=== PATIENT | male | born 1935 | race Caucasian/White ===

== ENCOUNTER 2017-08-14 17:59 | Emergency (ER) | payer OTHER ==
--- OUTSIDE RECORDS SUMMARY | 2017-08-14 18:01 | XMS REPORT | Clinical Summary ---
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);Dyslipidemia (high LDL; low HDL);Essential hypertension, 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 08/13/2016 Social History Tobacco Use Types Packs/Day Years Used Date Former Smoker Alcohol Use Drinks/Week oz/Week Comments No Sex Assigned at Date Recorded Not on file Last Filed Vital Signs Not on file Plan of Treatment Not on file Results Lipid panel (01/29/2017 9:05 AM) Component Value Ref Range Triglycerides 65 mg/dL Cholesterol 175 mg/dL HDL 46 mg/dL LDL Calculated 116 mg/dL Specimen Performing Laboratory Blood - Arm, Right [address] [address] Narrative Triglyceride Reference Range: Low Risk <150 [id number] High Risk 200-499 Very High Risk>=500 Cholesterol Reference Range: Low Risk <200 [id number] High Risk>240 HDL Cholesterol Reference Range: Low Risk >=60 High Risk <40 LDL Cholesterol Reference Range: Optimal<100 Near [id number] Swfl011-488 Very High >=190 after 08/13/2016
--- OUTSIDE RECORDS SUMMARY | 2017-08-14 18:01 | XMS REPORT | Clinical Summary ---
:1935 Author Organization [facility] Address [address] [place] [address] Care Team Providers Name Role Phone Asked, No Pcp Primary Care Provider Unavailable Allergies No Known Allergies Current Medications Prescription Sig. Disp. Refills Start Date End Date Status aspirin (ECOTRIN) 81 MG Take 81 mg by Active enteric coated tablet mouth daily. Active Problems Not on file Encounters Date Type Specialty Care Team Description 07/31/2017 [facility] 07/31/2017 Hospital Encounter Radiology Cristina Ki Foreign body in ANISA Gonzalez digestive tract, initial encounter 07/31/2017 Transcribe Orders Access Ki Evans Foreign body in Lisa Can digestive tract, initial encounter (Primary Dx) 06/22/2017 Emergency Emergency Medicine Rehrer, [place] Traumatic injury of head, initial encounter (Primary Dx); DO Armaan Cervical strain, acute, initial encounter after 08/13/2016 Social History Tobacco Use Types Packs/Day Years Used Date Never Smoker Smokeless Tobacco: Never Used Alcohol Use Drinks/Week oz/Week Comments Yes Sex Assigned at Date Recorded Not on file Last Filed Vital Signs Vital Sign Reading Time Taken Blood Pressure 137/64 06/22/2017 12:52 PM CDT Pulse 58 06/22/2017 12:52 PM CDT Temperature 36.8 C (98.3 F) 06/22/2017 11:01 AM CDT Respiratory Rate 16 06/22/2017 12:52 PM CDT Oxygen Saturation 99% 06/22/2017 12:52 PM CDT Inhaled Oxygen Concentration - - Weight - - Height 175.3 cm (5' 9") 06/22/2017 11:01 AM CDT Body Mass Index - - Plan of Treatment Health Maintenance Due Date Last Done Comments SHINGRIX VACCINE (#1) 08/02/1985 ZOSTER VACCINE 1995 PNEUMOCOCCAL POLYSACCHARIDE VACCINE AGE 65 AND OVER 08/02/2000 PNEUMOCOCCAL-13 08/02/2000 INFLUENZA VACCINE 09/16/2017 Procedures Procedure Name Priority Date/Time Associated Diagnosis Comments XR ABDOMEN 1 VW Routine 07/31/2017 9:20 AM Foreign body in Results for this CDT digestive tract, procedure are in initial encounter the results section. XR CHEST 2 VW Routine 07/31/2017 9:20 AM Foreign body in Results for this CDT digestive tract, procedure are in initial encounter the results section. CT HEAD WO CONTRAST STAT 06/22/2017 11:38 AM Results for this CDT procedure are in the results section. CT CERVICAL SPINE STAT 06/22/2017 11:37 AM Results for this WO CONTRAST CDT procedure are in the results section. after 08/13/2016 Results XR Abdomen 1 Vw (07/31/2017 9:20 AM) Narrative Performed At XR ABDOMEN 1 VW [facility] CLINICAL INDICATION:T18.9XXA Foreign body of alimentary tractpart unspecifiedinitial encounter, t18.9 COMPARISON:None. IMPRESSION: There is a radiodense focus overlying the right upper quadrant; this was anterior on today's chest radiographs consistent with distal stomach position, the transverse colon appearing more anterior. Bowel gas pattern is nonobstructive. There is moderate stool through the colon. No free air is identified. There are no radiopaque calculi. 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 [id number] Procedure Note Interface, Radiology Results Incoming - 07/31/2017 10:03 AM CDT XR ABDOMEN 1 VW CLINICAL INDICATION: T18.9XXA Foreign body of alimentary tract part unspecified initial encounter, t18.9 COMPARISON: None. IMPRESSION: There is a radiodense focus overlying the right upper quadrant; this was anterior on today's chest radiographs consistent with distal stomach position, the transverse colon appearing more anterior. Bowel gas pattern is nonobstructive. There is moderate stool through the colon. No free air is identified. There are no radiopaque calculi. 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 [id number] Performing Organization Address City/State/Zipcode Phone Number [facility] [address] [place] [address] XR Chest 2 Vw (07/31/2017 9:20 AM) Narrative Performed At XR CHEST 2 VW [facility] CLINICAL INDICATION:T18.9XXA Foreign body of alimentary tractpart unspecifiedinitial encounter, foreign body COMPARISON:01/19/2014 IMPRESSION: Lungs are clear and without change from priors. There is trace fluid in the posterior costophrenic sulci new from prior exam without significant effusion. Heart is normal in size. There is mild atherosclerosis of the aorta. [id number] thoracic spondylosis is noted. There is a high density 12 mm focus in the abdomen to the right of the midline in the region of the gastroduodenal junction/distal stomach consistent with history of foreign body, question dental crown. Thank you for allowing us to participate in the care of your patient. [id number] Procedure Note Interface, Radiology Results Incoming - 07/31/2017 9:27 AM CDT XR CHEST 2 VW CLINICAL INDICATION: T18.9XXA Foreign body of alimentary tract part unspecified initial encounter, foreign body COMPARISON: 01/19/2014 IMPRESSION: Lungs are clear and without change from priors. There is trace fluid in the posterior costophrenic sulci new from prior exam without significant effusion. Heart is normal in size. There is mild atherosclerosis of the aorta. Mild-to- moderate thoracic spondylosis is noted. There is a high density 12 mm focus in the abdomen to the right of the midline in the region of the gastroduodenal junction/distal stomach consistent with history of foreign body, question dental crown. Thank you for allowing us to participate in the care of your patient. [facility]-[id number] Performing Organization Address City/State/Zipcode Phone Number [facility] [phone] [place] [address] CT Head Wo Contrast (06/22/2017 11:38 AM) Narrative Performed At Study: [facility] History:fallbt head COMPARISON:None. TECHNIQUE: Multiple axial CT images of the head obtained without IV contrast. CT imaging was performed with iterative reconstruction technique and/or automated exposure control to reduce radiation dose. FINDINGS: Parenchymal volume is mildly diffusely decreased likely age related.. There are changes of chronic small vessel ischemic disease There is no acute hemorrhage, midline shift, hydrocephalus, edema, or extra-axial collections. .The visualized paranasal sinuses are well aerated.The mastoid air cells are well aerated. No destructive calvarial lesions are seen. The visualized orbits are unremarkable. IMPRESSION: No acute intracranial abnormality. [facility]-[id number] Procedure Note Interface, Radiology Results Incoming - 06/22/2017 11:43 AM CDT Study: CT HEAD WO CONTRAST History:fall bt head COMPARISON:None. TECHNIQUE: Multiple axial CT images of the head obtained without IV contrast. CT imaging was performed with iterative reconstruction technique and/or automated exposure control to reduce radiation dose. FINDINGS: Parenchymal volume is mildly diffusely decreased likely age related.. There are changes of chronic small vessel ischemic disease There is no acute hemorrhage, midline shift, hydrocephalus, edema, or extra-axial collections. .The visualized paranasal sinuses are well aerated. The mastoid air cells are well aerated. No destructive calvarial lesions are seen. The visualized orbits are unremarkable. IMPRESSION: No acute intracranial abnormality. [facility]-[id number] Performing Organization Address City/State/Zipcode Phone Number [facility] [address] [place] [address] CT Cervical Spine Wo Contrast (06/22/2017 11:37 AM) Narrative Performed At Study:CT CERVICAL SPINE WO CONTRAST [facility] History:fallbt headneck sore COMPARISON: None. TECHNIQUE: Multiple axial CT images of the cervical spine obtained without IV contrast. Sagittal and coronal reconstructions were done. CT imaging was performed with iterative reconstruction technique and/or automated exposure control to reduce radiation dose. FINDINGS: The cervical lordosis is maintained. There is minimal 3 mm retrolisthesis at C3-4, C4-5, and C7/T1 which are likely degenerative. Vertebral body heights are within normal limits. There is no acute fracture. Severe disc space loss present at C5-6 and C6-7 with endplate osteophytes indicating degenerative disc disease. There is no obvious osseous canal stenosis. Multilevel moderate foraminal stenosis present from spondylosis worse at C3-4, C4-5, C5-6, and C6-7. Paravertebral soft tissues are unremarkable. There is no soft tissue edema. Visualized upper chest is unremarkable. IMPRESSION: No acute abnormality. [facility]-[id number] Procedure Note Interface, Radiology Results Incoming - 06/22/2017 11:46 AM CDT Study:CT CERVICAL SPINE WO CONTRAST History:fall bt head neck sore COMPARISON: None. TECHNIQUE: Multiple axial CT images of the cervical spine obtained without IV contrast. Sagittal and coronal reconstructions were done. CT imaging was performed with iterative reconstruction technique and/or automated exposure control to reduce radiation dose. FINDINGS: The cervical lordosis is maintained. There is minimal 3 mm retrolisthesis at C3 -4, C4-5, and C7/T1 which are likely degenerative. Vertebral body heights are within normal limits. There is no acute fracture. Severe disc space loss present at C5-6 and C6-7 with endplate osteophytes indicating degenerative disc disease. There is no obvious osseous canal stenosis. Multilevel moderate foraminal stenosis present from spondylosis worse at C3-4, C4-5, C5-6, and C6-7. Paravertebral soft tissues are unremarkable. There is no soft tissue edema. Visualized upper chest is unremarkable. IMPRESSION: No acute abnormality. [id number] Performing Organization Address City/State/Zipcode Phone Number [facility] [address] [facility] [place] [address] after 08/13/2016 Insurance Payer Benefit Plan / Group Subscriber ID Type Phone Address MEDICARE MEDICARE PART A AND B xxxxxxxxxx Medicare [place], [place] CANDICE HARVEY OPEN ACCESS/NETWORK xxxxxxxxxxx O Work: [id number] [facility] [phone] [place], [place] [phone] Home:
--- OUTSIDE RECORDS SUMMARY | 2017-08-14 18:02 | XMS REPORT | Summary of Care ---
:1935 Author Organization [facility] [place] [facility] Encounter HQ Shawnar_morgan(FIN) [id number] Date(s): 04/23/16 - 04/23/16 [facility] [place] [facility] [address] [place] [address], [address] [phone] Discharge Disposition: Home or Self Care Attending Physician: Walter Moon MD Vital Signs No data available for this section Problem List No data available for this section Allergies, Adverse Reactions, Alerts Substance Reaction Severity Status NKDA Active Medications No data available for this section Results No data available for this section Immunizations No data available for this section Procedures No data available for this section Social History No data available for this section Assessment and Plan No data available for this section
--- OUTSIDE RECORDS SUMMARY | 2017-08-14 18:02 | XMS REPORT | Continuity of Care Document ---
:1935 Author Organization Interface Problems Problem Status Onset Classification Date Comments Source Date Reported Q64.7 Active [place] [address] N/A Active [facility] 7 Impaired Active Problem 12/23/2016 [facility] hearing HTN (<span Active Problem 12/23/2016 [facility] ID="[id number]">Confir med</span>) Medications Medication Details Route Status Patient Ordering Order Source Instructions Provider Date lisinopril
5 mg, 1 Inactive tab, Route: PO, 2016 [facility] Drug form: TAB, Daily, Dosing Weight 73.636, kg, Start date: 12/20/16 9:00:00 CDT, Duration: 30 day, Stop date: 01/18/17 9:00:00 NEUROLOGY TEACHER
Notes: (Same as: Prinivil, Zestril) Zetia
10 mg, 1 Inactive tab, Route: PO, 2016 [facility] Drug form: TAB, Daily, Dosing Weight 73.636, kg, Start date: 12/20/16 9:00:00 CDT, Duration: 30 day, Stop date: 01/18/17 9:00:00 NEUROLOGY TEACHER
Notes: (Same as: Zetia) Saline Flush
10 ml, No Longer 0.9% Route: IVP, Drug Active 2016 [facility] Form: INJ, Dosing Weight 73.636, kg, Q12H, Start date: 12/19/16 21:00:00 CDT, Duration: 30 day, Stop date: 01/18/17 9:00:00 NEUROLOGY TEACHER
Notes: (Same as: BD Posiflush) ceFAZolin (SCIP)
Route: IVP, Inactive 2 gm + sterile Drug form: 2016 [facility] water 20 mL PDR/INJ, Q8H, Dosing Weight 73.636, kg, Start date: 12/19/16 20:00:00 CDT, Duration: 1 doses or times, Stop date: 12/19/16 20:00:00 CDT, ABX Indication: Surgical Prophylaxis
Notes: (Same As: Chris Elizabeth) MEDICATION WASTE Product Size: 1000 mg Product Wasted: ___ mg Coreg
6.25 mg, 1 No Longer tab, Route: PO, Active 2016 [facility] Drug form: TAB, BID, Dosing Weight 73.636, kg, Start date: 12/19/16 17:00:00 CDT, Duration: 30 day, Stop date: 01/18/17 9:00:00 NEUROLOGY TEACHER
Notes: Give with food. (Same As: Coreg) ANES
1,000 mg, Inactive acetaminophen 100 mL, Route: 2016 [facility] IVPB, Drug form: INJ, ONCE, Dosing Weight 73.636, kg, PRN Pain Score 1-3, Start date: 12/19/16 13:23:00 CDT, Duration: 1 doses or times, Stop date: Limited # of times
Notes: Infuse over 15 minutes Do not exceed 4gm/day of acetaminophen MEDICATION WASTE Product Size: 1000 mg Product Wasted: ___ mg ANES ondansetron
4 mg, 2 mL, Inactive Route: IVP, Drug 2016 [facility] form: INJ, ONCE, Dosing Weight 73.636, kg, PRN Nausea & Vomiting, Start date: 12/19/16 13:23:00 CDT
Notes: (Same as: Jackelin) MEDICATION WASTE Product Size: 4 mg Product Wasted: ___ mg ANES morphine
2 mg, 1 mL, Inactive Sulfate Route: IVP, Drug 2016 [facility] form: INJ, Q5Min, Dosing Weight 73.636, kg, PRN Pain Score 4-6, Start date: 12/19/16 13:23:00 CDT, Duration: 5 doses or times, Stop date: Limited # of times
Notes: (Same as:MORPhine Sulfate) ANES oxyCODONE
5 mg, 5 mL, Inactive Route: PO, Drug 2016 [facility] form: LIQ, Q4H, Dosing Weight 73.636, kg, PRN Pain Score 4-6, Start date: 12/19/16 13:23:00 CDT, Duration: 30 day, Stop date: 01/18/17 13:22:00 NEUROLOGY TEACHER
Notes: (Same as: 'Roxicodone) ANES
0.5 mg, 0.5 Inactive HYDROmorphone mL, Route: IVP, 2016 [facility] Drug form: INJ, Q5Min, Dosing Weight 73.636, kg, PRN Pain Score 7-10, Start date: 12/19/16 13:23:00 CDT, Duration: 4 doses or times, Stop date: Limited # of times ANES naloxone
0.4 mg, 1 Inactive mL, Route: IVP, 2016 [facility] Drug form: INJ, Q2MIN, Dosing Weight 73.636, kg, PRN Narcotic Reversal, Start date: 12/19/16 13:23:00 CDT, Duration: 8 doses or times, Stop date: Limited # of times
Not es: Same as Narcan ANES flumazenil
0.2 mg, 2 Inactive mL, Route: IVP, 2016 [facility] Drug form: INJ, PRN, Dosing Weight 73.636, kg, PRN Benzodiazepine Reversal, Initial dose, Start date: 12/19/16 13:23:00 CDT, Duration: 30 day, Stop date: 01/18/17 12:22:00 NEUROLOGY TEACHER
Notes: (Same as: Romazicon) ANES labetalol
10 mg, 2 Inactive mL, Route: IVP, 2016 [facility] Drug form: INJ, Q5Min, Dosing Weight 73.636, kg, PRN Elevated BP, Start date: 12/19/16 13:23:00 CDT, Duration: 5 doses or times, Stop date: Limited # of times Lactated Ringers
1,000 mL, Inactive 1,000 mL Rate: 125 ml/hr, 2016 [facility] Infuse over: 8 hr, Route: IV, Dosing Weight 73.636 kg, Total Volume: 1,000, Start date: 12/19/16 13:23:00 CDT, Duration: 30 day, Stop date: 01/18/17 13:22:00 NEUROLOGY TEACHER dexamethasone
Route: IV, Inactive (ANES) Drug form: INJ, 2016 [facility] , Stop date: 12/19/16 12:50:00 CDT ondansetron
Route: IV, Inactive (ANES) Drug form: INJ, 2016 [facility] , Stop date: 12/19/16 12:50:00 CDT glycopyrrolate
Route: IV, Inactive (ANES) Drug form: INJ, 2016 [facility] , Stop date: 12/19/16 12:50:00 CDT lidocaine (ANES)
Route: IV, Inactive Drug form: INJ, 2016 [facility] , Stop date: 12/19/16 12:50:00 CDT propofol (ANES)
Route: IV, Inactive Drug form: INJ, 2016 [facility] , Stop date: 12/19/16 12:50:00 CDT fentaNYL (ANES)
Route: IV, Inactive Drug form: INJ, 2016 [facility] , Stop date: 12/19/16 12:50:00 CDT phenylephrine
Route: IV, Inactive (ANES) Drug form: INJ, 2016 [facility] , Stop date: 12/19/16 12:50:00 CDT ceFAZolin (ANES)
Route: IV, Inactive Drug form: INJ, 2016 [facility] , Stop date: 12/19/16 12:50:00 CDT Saline Flush
10 ml, No Longer 0.9% Route: IVP, Drug Active 2016 [facility] Form: INJ, Dosing Weight 73.636, kg, PRN, PRN Line Flush, Start date: 12/19/16 12:40:00 CDT, Duration: 30 day, Stop date: 01/18/17 11:39:00 NEUROLOGY TEACHER
Notes: (Same as: BD Posiflush) acetaminophen-hy
1 tab, No Longer drocodone 325 Route: PO, Drug Active 2016 [facility] mg-5 mg oral Form: TAB, tablet Dosing Weight 73.636, kg, Q4H, PRN Pain Score 4-6, Start date: 12/19/16 12:40:00 CDT, Duration: 30 day, Stop date: 01/18/17 12:39:00 NEUROLOGY TEACHER
Notes: (Same as: [place] 325/5) Do not exceed 4gm/day of acetaminophen. ondansetron
4 mg, 2 mL, No Longer Route: IVP, Drug Active 2016 [facility] form: INJ, Q6H, Dosing Weight 73.636, kg, PRN Nausea & Vomiting, Start date: 12/19/16 12:40:00 CDT, Duration: 30 day, Stop date: 01/18/17 12:39:00 NEUROLOGY TEACHER
Notes : (Same as: Jackelin) MEDICATION WASTE Product Size: 4 mg Product Wasted: ___ mg acetaminophen-hy
1 tab, No Longer drocodone 325 Route: PO, Drug Active 2016 [facility] mg-10 mg oral Form: TAB, tablet Dosing Weight 73.636, kg, Q4H, PRN Pain Score 4-6, Start date: 12/19/16 12:40:00 CDT, Duration: 30 day, Stop date: 01/18/17 12:39:00 NEUROLOGY TEACHER
Notes: Do not exceed 4gm/day of acetaminophen. (Same as: [place] 325/10) LR 1000 mL INJ
Route: IV, Inactive (ANES) Total Volume: 2016 [facility] 1,000, Start date: 12/19/16 12:02:00 CDT, Stop date: 12/19/16 13:02:00 CDT Coreg
6.25 mg, Active PO, BID 2016 [facility] lisinopril
5 mg, PO, Active Daily 2016 [facility] aspirin
81 mg, PO, Active Daily, 0 2016 [facility] Refill(s) MAGNESIUM
MAGNESIUM, Active Refill(s) 0 2016 [facility] Zetia
10 mg, PO, Active Daily 2016 [facility] influenza virus
0.5 mL, No Longer vaccine, Route: IM, Drug Active 2016 [facility] inactivated Form: SUSP, ONCALL, Start date: 12/09/16 14:36:27 CDT, Stop date: 01/08/17 14:31:27 NEUROLOGY TEACHER
Notes: (Same as: Fluzone Quadrivalent, Fluarix Quadrivalent) For 3 years of age and older (0.5 mL IM) Shake well before use Allergies, Adverse Reactions, Alerts Substance Category Reaction Severity Reaction Status Date Comments Source type Reported NKDA Assertion Drug Active allergy [facility] Immunizations Immunization Date Given Site Status Last Updated Comments Source Results Order Name Results Value Reference Date Interpretation Comments Source Range Renal Renal Patient Name: PHONG WEATHERS ROB 12/19 - pyelogram pyelogram /2016 - [facility] retrograde retrograde : 1935; Age: 81 years y/o Male DX DX MR: [id number] Read by: Florian Zabala MD Dictated Date/time: 12/19/16 18:51 Electronically Signed by: Florian Zabala MD 12/19/16 18:53 FINAL REPORT Study: Renal pyelogram retrograde DX 12/19/2016 11:15 AM CDT Ordering Physician: Josh Metcalf MD Comparison: None Clinical Indication: BILATERAL RENAL DRAINING DEFECT//FT--44 SEC. - CHECK FOR STONES; Retrograde opacification of the visualized right upper collecting system and right ureter is unremarkable. Retrograde opacification of the visualized left upper collecting system and left ureter demonst rates a persistent short segmental area of narrowing at the proximal left ureter distal to the left UPJ which could represent a vascular crossing defect. Left upper collecting system and left ureter oth erwise unremarkable. No intraluminal filling defects are noted. SL: PJOHNSON- ELECTROLYT AGAP 12.0 meq/L 10.0 - 12/09 ES 20.0 [facility] ELECTROLYT eGFR 80 12/09 Result Comment: The eGFR is calculated using the CKD-EPI formula. In most young, healthy individuals the eGFR will be >90 mL/ min/1.73m2. The eGFR declines with age. An eGFR of 60-89 may be normal in mL/min/1. some populations, particularly the elderly, for whom the CKD-EPI formula has not been extensively validated. Use of the eGFR is not recommended in the following populations: [place] [address] Individuals with unstable creatinine concentrations, including patients and those with serious co-morbid conditions. Patients with extremes in muscle mass or diet. The data above are obtained from the National Kidney Disease Education Program (NKDEP) which additionally recommends that when the eGFR is used in patients with extremes of body mass index for purposes of drug dosing, the eGFR should be multiplied by the estimated BMI. ELECTROLYT Chloride Lvl 105 meq/L 95 - 109 12/09 [facility] ELECTROLYT Potassium 4.0 meq/L 3.5 - 5.1 12/09 [facility] Lvl [facility] ELECTROLYT Calcium Lvl 8.1 mg/dL 8.5 - 10.5 12/09 [facility] ELECTROLYT CO2 32 meq/L 24 - 32 12/09 [facility] ELECTROLYT BUN 20 mg/dL 7 - 22 12/09 [facility] ELECTROLYT Creatinine 0.90 mg/dL 0.50 - 12/09 [facility] Lvl 1.40 [facility] ELECTROLYT Sodium Lvl 145 meq/L 135 - 145 12/09 [facility] ELECTROLYT Glucose Lvl 104 mg/dL 70 - 99 12/09 [facility] HEMATOLOGY MCH 31.9 pg 27.0 - 12/09 31. [facility] HEMATOLOGY MCV 93.0 fL 80.0 - 12/09 94.0 [facility] HEMATOLOGY RDW 13.5 % 11.5 - 12/09 14. [facility] HEMATOLOGY Platelet 242 K/CMM 133 - 450 12/09 [facility] HEMATOLOGY MCHC 34.3 g/dL 32.0 - 12/09 MH 36.0 [facility] HEMATOLOGY MPV 6.7 fL 7.4 - 10.4 12/09 [facility] HEMATOLOGY WBC 6.6 K/CMM 3.7 - 10.4 12/09 [facility] HEMATOLOGY RBC 4.17 M/CMM 4.70 - 12/09 MH 6. [facility] Hct 38.8 % 42.0 - 12/09 MH 54.[address] [facility] Hgb 13.3 g/dL 14.0 - 12/09 MH 18.[address] [facility] Monocytes # 0.5 K/CMM 0.0 - 0.8 12/09 [facility] HEMATOLOGY Segs-Bands # 4.0 K/CMM 1.5 - 8.1 12/09 [facility] HEMATOLOGY Eosinophils 0.3 K/CMM 0.0 - 0.5 12/09 MH # /2017 [facility] HEMATOLOGY Lymphocytes 1.7 K/CMM 1.0 - 5.5 12/09 MH # /2016 [facility] HEMATOLOGY Basophils # 0.0 K/CMM 0.0 - 0.2 12/09 [facility] HEMATOLOGY Segs 61.1 % 45.0 - 12/09 MH 75.0 [facility] Basophils 0.5 % 0.0 - 1.0 12/[address] [facility] Eosinophils 4.2 % 0.0 - 4.0 12/09 [facility] Monocytes 8.3 % 2.0 - 12.0 12/[address] [facility] Lymphocytes 25.9 % 20.0 - 12/09 MH 40.0 [facility] Abd Renal Abd Renal EXAM: CT ABDOMEN AND PELVIS WITH AND WITHOUT CONTRAST 05/01 - [facility] Protocol Protocol /2017 - [facility] w/wo IV w/wo IV Imaging contrast contrast CT CT DATE: 05/01/2016 9:00 AM CDT Read by: Wilbert Dobbins MD Dictated Date/time: 05/01/16 09:52 Electronically Signed by: Wilbert Dobbins MD 05/01/16 10:16 FINAL REPORT INDICATION: Indeterminate density lesions in the right kidney which require further evaluation with CT exam with and without contrast ADDITIONAL INFORMATION: History of cholecystectomy, hernia surgery, and appendectomy.. COMPARISON: 04/23/2016. TECHNIQUE: Volumetric CT acquisition of the abdomen and pelvis before and after intravenous contrast. Axial, coronal and sagittal reconstructions. IV contrast: None Oral contrast: None. FINDINGS: Lines and tubes: None. Lower thorax: Minimal compressive subsegmental atelectasis is seen in the right lower lobe medially adjacent to a thoracic spinal osteophyte. Atherosclerotic calcifications are seen throughout the visua lized portions of the coronary arterial system. No pleural or pericardial effusions are seen. Liver: Normal. Biliary tree: Mild pneumobilia is present with gas within the common bile duct and intrahepatic ductal system. The common bile duct measures 11 mm in maximal diameter. These findings are likely related to the patient's postcholecystectomy state and prior sphincterotomy. Clinical correlation is recommended. Gas-forming infection is unlikely given lack of associated edema surrounding the biliary tree. Gallbladder: The gallbladder is absent surgically. Pancreas: A punctate calcification is seen in the pancreatic tail, likely related to the patient's prior pancreatitis. No gross masses are seen. No fluid collections or pancreatic ductal abnormalities are noted. Spleen: Normal. Adrenals: Normal. Kidneys and ureters: Numerous simple fluid attenuation lesions are seen within the right kidney, likely benign simple cysts with the largest located off of the medial cortex of the right kidney measurin g 2.7 cm in maximal diameter. The largest left renal simple fluid attenuation nonenhancing cyst measures 1.4 cm in maximal diameter. A round exophytic lesion is seen extending off the superior pole the right kidney measuring 1.6 cm in maximal diameter and measuring 32 Hounsfield units in density without associated enhancement on postcontrast imaging. Another stable round hypodense lesion is seen extending off of the inferior cortex of the left kidney anteriorly measuring 1.6 cm in maximal diameter measuring 22 Hounsfield units in density with no ass ociated enhancement on postcontrast imaging. These lesions likely represent complex proteinaceous or hemorrhagic cysts but are nonspecific. A stable 5 mm hyperdense cyst is seen in the lateral cortex of the right kidney on image 29 of series 2. No hydronephrosis or calculi are seen in the right kidney. Arising off of the superior pole cortex of the left kidney, there is a stable round 1.1 cm exophytic lesion measuring 61 Hounsfield units in density with a punctate calcification along its posterior bor carolin and with no associated enhancement on postcontrast imaging. Within the mid cortex of the right kidney, there are 4 mm and 7 mm hyperdense lesions measuring greater than 70 Hounsfield units on noncontrast imaging compatible with benign hemorrhagic cysts. Some pun ctate renal cortical calcifications are seen in the inferior pole of the right kidney medially on image 38 of series 2. An exophytic 1.5 cm simple fluid attenuation cyst is seen arising off of the left kidneys inferior pole. No hydronephrosis or calculi are seen. No abnormalities of the included portions of the ureters are demonstrated. Gastrointestinal tract: The stomach is normal in appearance. A few diverticuli are seen off the sigmoid colon with no CT evidence of acute diverticulitis. No other abnormalities of the included large a nd small bowel are demonstrated. The included small intestine and colon are of normal course and caliber with no constricting or obstructing lesions, masses, or surrounding inflammatory changes. Appendix: Not visualized Peritoneum and retroperitoneum: No lymphadenopathy, ascites or free air. Lymph nodes: No abdominal or pelvic lymphadenopathy is seen. Vasculature: Moderate atherosclerotic calcifications are seen throughout the arterial structures of the abdomen and pelvis with no aneurysms seen. There is fusiform ectasia of the common iliac arteries up to 1.3 cm on the left and 1.1 cm in diameter on the right. Bones: Multilevel spondylosis is seen in the thoracolumbar spine. Facet joint osteoarthritic changes are present in the mid to lower lumbar spine. Soft tissues/abdominal wall: None within the [id number] of this exam. IMPRESSION: 1. Simple cysts in the bilateral kidneys, stable from the prior exam. Some hyperdense nonenhancing stable hemorrhagic Bosniak 2 cysts are seen in both kidneys as well. Other small hypodensities which ar e subcentimeter in size are too small to characterize in both kidneys. 2. Two separate 1.6 cm Bosniak 2 nonenhancing mildly hyperdense cysts are seen within the right kidney with no associated mass. 3. A 1.1 cm exophytic hyperdense lesion arising off of the cortex of the left kidney superiorly displaced no enhancement but does display a punctate calcification along its posterior border. This lesion also is categorized as a Bosniak 2 cyst. 3. The gallbladder is surgically absent with common bile duct and central intrahepatic ductal dilatation likely from the patient's postcholecystectomy state (normal variant reservoir effect). Mild pneumobilia is seen throughout the common bile duct and central intrahepatic ducts, likely from prior sphincterotomy. Clinical correlation is recommended. Gas-forming infection is less likely. 4. Colonic diverticulosis with no CT evidence of acute diverticulitis. 5. Atherosclerotic vascular disease, including of the coronary arteries. There is mild fusiform ectasia of the bilateral common iliac arteries. No aortic aneurysm is seen. 6. Stable punctate calcification the pancreatic tail likely from prior pancreatitis. No other pancreatic abdomen is are seen within the limitations of a noncontrast enhanced exam. Chest 2 Chest 2 EXAM: XR CHEST 2 VIEWS 04/23 - [facility] views DX views DX /2016 - [facility] DATE: 04/23/2016 8:19 AM NEUROLOGY TEACHER Read by: Wilbert Dobbins MD Dictated Date/time: 04/23/16 08:30 Electronically Signed by: Wilbert Dobbins MD 04/23/16 08:31 FINAL REPORT INDICATION: Weight loss COMPARISON: 11/24/2012 TECHNIQUE: PA and lateral chest radiographs FINDINGS: No lung parenchymal or pleural abnormalities are seen. Lina and pulmonary vasculature are normal. Cardiac silhouette is normal in size. Atherosclerotic calcifications are seen in the aort ic arch and descending thoracic aorta. No acute bony abnormality is identified. Multilevel spondylosis is seen in the thoracic spine. Surgical fixation anchors seen within the left humeral head or left glenoid IMPRESSION: No acute cardiopulmonary abnormality. No significant change from 11/24/2012. Abdomen/Pe Abdomen/Pelv EXAM: CT ABDOMEN AND PELVIS WITHOUT CONTRAST [facility] lvis wo IV is wo IV /2016 - [facility] contrast contrast CT Imaging CT DATE: 04/23/2016 8:24 AM NEUROLOGY TEACHER Read by: Wilbert Dobbins MD Dictated Date/time: 04/23/16 09:26 Electronically Signed by: Wilbert Dobbins MD 04/23/16 10:04 FINAL REPORT INDICATION: Unexplained loss 30 pounds over the past one year. Leg cramps. ADDITIONAL INFORMATION: History of prior pancreatitis.. COMPARISON: None. TECHNIQUE: Volumetric CT acquisition of the abdomen and pelvis without intravenous contrast. Axial, coronal and sagittal reconstructions. IV contrast: None Oral contrast: Redicat. FINDINGS: Lines and tubes: None. Lower thorax: Minimal compressive subsegmental atelectasis is seen in the right lower lobe medially adjacent to a thoracic spinal osteophyte. Atherosclerotic calcifications are seen throughout the visua lized portions of the coronary arterial system. No pleural or pericardial effusions are seen. Liver: Normal. Biliary tree: Moderate pneumobilia is present with gas within the common bile duct and intrahepatic ductal system. The common bile duct measures 11 mm in maximal diameter. These findings are likely rela cesar to the patient's postcholecystectomy state and prior single carotid the. Clinical correlation is recommended. Gas-forming infection is unlikely given lack of associated edema surrounding the biliary tree. Gallbladder: The gallbladder is absent surgically. Pancreas: A punctate calcification is seen in the pancreatic tail, likely related to the patient's prior pancreatitis. No gross masses are seen. No fluid collections or pancreatic ductal abnormalities are noted. Spleen: Normal. Adrenals: Normal. Kidneys and ureters: Numerous simple fluid attenuation lesions are seen within the right kidney, likely benign simple cysts with the largest located off of the medial cortex of the left kidney measuring 2.7 cm in maximal diameter. A round exophytic lesion is seen extending off the superior pole the right kidney measuring 1.6 cm in maximal diameter and measuring 33 Hounsfield units in density. Another round hypodense lesion is seen extending off of the inferior cortex of the left kidney anteriorly measuring 1.6 cm in maximal diameter measuring 26 Hounsfield units in density. These lesions likely repr esent complex proteinaceous or hemorrhagic cysts but are nonspecific. A 5 mm hyperdense cyst is seen in the lateral cortex of the right kidney on image 38 of series 2. No hydronephrosis or calculi are seen in the right kidney. Arising off of the superior pole cortex of the left kidney, there is a round 1.1 cm exophytic lesion measuring 61 Hounsfield units in density. Within the mid cortex of the right kidney, there are 4 mm a nd 7 mm hyperdense lesions measuring greater than 70 Hounsfield units compatible with benign hemorrhagic cysts. Some punctate renal cortical calcifications are seen in the inferior pole of the right kid terrell medially on image 36 of series 2. An exophytic 1.5 cm simple fluid attenuation cyst is seen arising off of the left kidneys inferior pole. No hydronephrosis or calculi are seen. No abnormalities of the ureters are demonstrated. Bladder: There is diffuse moderate wall thickening of the bladder and a concentric fashion with no distinct masses or calculi noted. There is mass effect upon the base of the bladder by the enlarged prostate. Reproductive organs: The prostate gland is enlarged measuring 5.3 x 3.8 x 6.0 cm with mass effect upon the base of the bladder. No gross contour abnormalities or masses are seen. Seminal vesicles are normal in appearance. Gastrointestinal tract: Gastroesophageal reflux is seen into the distal esophagus. The stomach is normal in appearance. A few diverticuli are seen off the sigmoid colon with no CT evidence of acute div erticulitis. No other abnormalities of the large and small bowel are demonstrated. The small intestine and colon are of normal course and caliber with no constricting or obstructing lesions, masses, or surrounding inflammatory changes. No rectal or perirectal abnormalities are seen. Appendix: Not visualized Peritoneum and retroperitoneum: No lymphadenopathy, ascites or free air. Lymph nodes: No abdominal or pelvic lymphadenopathy is seen. Vasculature: Moderate atherosclerotic calcifications are seen throughout the arterial structures of the abdomen and pelvis with no aneurysms seen. There is fusiform ectasia of the common iliac arteries up to 1.3 cm on the left and 1.1 cm in diameter on the right. Bones: Multilevel spondylosis is seen in the thoracolumbar spine. Facet joint osteoarthritic changes are present in the mid to lower lumbar spine. Osteoarthritic changes are seen at the sacroiliac joint s and bridging osteophyte formation. Mild osteoarthritic changes are seen involving the bilateral hips with osteophyte formation.. Soft tissues/abdominal wall: A small indirect right-sided fat-containing inguinal hernias present with no surrounding or internal inflammatory changes. A small-moderately sized fat-containing left direc t inguinal hernia is present with no surrounding or internal inflammatory changes. IMPRESSION: 1. Mixture of hypodense, intermediate density, and hyperdense lesions within the kidneys as described above, likely from a combination of simple cysts and of complex Bosniak 2 and Bosniak 2F proteinaceo us/hemorrhagic cysts. However, the intermediate density indeterminate lesions described above in the right kidney require further evaluation with CT or MRI with renal mass protocol with and without cont rast to exclude underlying cystic or complex cystic malignancy. 2. The gallbladder is surgically absent with bile duct and central intrahepatic ductal dilatation likely from the patient's postcholecystectomy state (reservoir effect). Moderate pneumobilia is see n throughout the common bile duct and central intrahepatic ducts, likely from prior sphincterotomy. Clinical correlation is recommended. Gas-forming infection is less likely. 3. Bilateral fat-containing inguinal hernias, left-sided greater than right with no surrounding or internal inflammatory changes. 4. Colonic diverticulosis with no CT evidence of acute diverticulitis. 5. Gastroesophageal reflux. 6. The prostate gland is significantly enlarged with no gross contour abnormalities or gross masses seen on this noncontrast enhanced exam. Findings likely represent benign prostatic hypertrophy with ma ss effect upon the base of the urinary bladder. Clinical correlation is recommended. If further imaging evaluation of the prostate gland is indicated, prostate ultrasound or MRI may be performed. 7. Bladder wall thickening is likely related to chronic bladder outlet partial obstruction from the patient's enlarged prostate gland. Infectious or infiltrating pathology are less likely. 8. Atherosclerotic vascular disease, including of the coronary arteries. There is mild fusiform ectasia of the bilateral common iliac arteries. No aortic aneurysm is seen. 9. Punctate calcification the pancreatic tail likely from prior pancreatitis. No other pancreatic abdomen is are seen within the limitations of a noncontrast enhanced exam. Spine Spine EXAM: MRI CERVICAL SPINE WITHOUT CONTRAST 04/16 - Y[facility] cervical cervical - [facility] contrast MRI Imaging contrast MRI DATE: 04/16/2016 8:06 AM NEUROLOGY TEACHER Read by: Heather Matthews MD Dictated Date/time: 04/16/16 12:00 Electronically Signed by: Heather Matthews MD 04/16/16 12:19 FINAL REPORT INDICATION: G95.9 Disease of spinal cord, unspecified COMPARISON: None TECHNIQUE: Multiplanar, multisequence noncontrast imaging of the cervical spine. IV contrast: None. FINDINGS: The height and the structure of the cervical vertebral bodies are well- maintained. Cross cervical junction is intact. No bone marrow signal abnormality. C2-C3: No canal stenosis. Narrowing of the left neural foramen mainly by facet arthropathy. The right neural foramen is patent. Left paracentral 2 mm osteophyte disc complex is deforming the ventral outlet of the left C3 nerve root sleeve. C3-C4: No canal stenosis. Severe narrowing of the left neural foramen due to uncal and facet arthropathy. The right neural foramen is patent. C4-C5: No canal stenosis. Bilateral foraminal narrowing due to uncal and facet arthropathy. C5-C6: No canal stenosis. No significant foraminal narrowing. Periradicular cysts within the neural foramen. C6-C7: No canal stenosis. Narrowing of both neural foramen, left greater than right due to uncal and facet arthropathy. Shallow annular bulge and posterior endplate spondylosis indenting the ventral thecal sac. C7-T1: Advanced bilateral facet arthropathy. No significant foraminal narrowing. No canal is stenosis. IMPRESSION: Multilevel degenerative changes not resulting in canal stenosis, cord compression or cord signal abnormality. Narrowing of neural foramen due to uncal and facet arthropathy. Vital Signs Vital Sign Value Date Comments Source Respitory Rate 16 12/20/2016 [facility] Heart Rate 87 12/20/2016 [facility] Systolic (mm Hg) 130 12/20/2016 [facility] Diastolic (mm Hg) 66 12/20/2016 [facility] Respitory Rate 20 12/20/2016 [facility] Systolic (mm Hg) 129 12/20/2016 [facility] Diastolic (mm Hg) 60 12/20/2016 [facility] Heart Rate 64 12/20/2016 [facility] Temperature Oral (F) 99.1 F 12/20/2016 [facility] Respitory Rate 20 12/20/2016 [facility] Systolic (mm Hg) 130 12/20/2016 [facility] Diastolic (mm Hg) 68 12/20/2016 [facility] Temperature Oral (F) 99.2 F 12/20/2016 [facility] Heart Rate 73 12/20/2016 [facility] Height 175.26 cm 12/19/2016 [facility] Weight 73.636 12/19/2016 [facility] BMI Calculated 23.97 12/19/2016 [facility] Temperature Oral (F) 97.6 F 12/19/2016 [facility] BMI Calculated 23.97 12/09/2016 [facility] Weight 73.636 12/09/2016 [facility] Height 175.26 cm 12/09/2016 [facility] Encounters Location Location Encounter Encounter Reason Attending ADM DC Status Source Details Type Number For Provider Date Date Visit [facility] Outpt Diag [id number] Leighton 04/16 04/17 [facility] Outpt Diag [id number] Walter Wayne 04/23 04/24 [facility] Outpt Diag [id number] Walter Wayne 05/01 05/02 [facility] Bedded [id number] Josh 12/19 12/20 [facility] Procedures Procedure Code Date Perfomer Comments Source Angioplasty<sup>1</zaman [id number] CORONARY [facility] p> STENTSS X3 Cholecystectomy [id number] [facility] Procedure<sup>2</sup> [id number] RIGHRT ARM [facility] TENDONS REPAIR Procedure<sup>3</sup> [id number] TRIGGER FINGER [facility] BILATERAL Rotator cuff [id number] BILATERAL [facility] repair<sup>4</sup> Stent placement [id number] [facility]
--- OUTSIDE RECORDS SUMMARY | 2017-08-14 18:02 | XMS REPORT | Summary of Care ---
:1935 Author Organization Address [facility] [place], [place] [address]- Encounter HQ Damon(FIN) [id number] Date(s): 12/19/16 - 12/20/[address] [address]- Discharge Disposition: Home or Self Care Attending Physician: Josh Metcalf MD Referring Physician: Josh Metcalf MD Vital Signs Most recent to oldest 1 2 3 [Reference Range]: Height 175.26 cm 175.26 cm (12/19/16 5:50 PM) (12/09/16 2:18 PM) Temperature Oral [96.4-99.1 99.1 DegF 99.2 DegF 97.6 DegF DegF] (12/20/16 12:28 AM) *HI* (12/19/16 10:30 AM) (12/19/16 8:10 PM) Blood Pressure [90-140/60-90 130/66 mmHg 129/60 mmHg 130/68 mmHg mmHg] (12/20/16 8:00 AM) (12/20/16 12:28 AM) (12/19/16 8:10 PM) Respiratory Rate [14-20 16 BRMIN 20 BRMIN 20 BRMIN BRMIN] (12/20/16 8:00 AM) (12/20/16 12:28 AM) (12/19/16 8:10 PM) Peripheral Pulse Rate 87 bpm 64 bpm 73 bpm [60-100 bpm] (12/20/16 8:00 AM) (12/20/16 12:28 AM) (12/19/16 8:10 PM) Weight 73.636 kg 73.636 kg (12/19/16 5:50 PM) (12/09/16 2:18 PM) Body Mass Index 23.97 m2 23.97 m2 (12/19/16 5:50 PM) (12/09/16 2:18 PM) Problem List Condition Effective Dates Status Health Status Informant Impaired hearing(Confirmed) Active HTN (hypertension)(Confirmed) Active Allergies, Adverse Reactions, Alerts Substance Reaction Severity Status NKDA Active Medications acetaminophen-hydrocodone 325 mg-10 mg oral tablet 1 tab, Route: PO, Drug Form: TAB, Dosing Weight 73.636, kg, Q4H, PRN Pain Score 4-6, Start date: 12/19/16 12:40:00 CDT, Duration: 30 day, Stop date: 01/18/17 12 :39:00 [employer] HR REPRESENTATIVE Notes: Do not exceed 4gm/day of acetaminophen. (Same as: [place] 325/10) Start Date: 12/19/16 Stop Date: 12/20/16 Status: Discontinuedacetaminophen-hydrocodone 325 mg-5 mg oral tablet 1 tab, Route: PO, Drug Form: TAB, Dosing Weight 73.636, kg, Q4H, PRN Pain Score 4-6, Start date: 12/19/16 12:40:00 CDT, Duration: 30 day, Stop date: 01/18/17 12 :39:00 HUMAN RESOURCES HR REPRESENTATIVE Notes: (Same as: [place] 325/5) Do not exceed 4gm/day of acetaminophen. Start Date: 12/19/16 Stop Date: 12/20/16 Status: DiscontinuedANES acetaminophen 1,000 mg, 100 mL, Route: IVPB, Drug form: INJ, ONCE, Dosing Weight 73.636, kg, PRN Pain Score 1-3, Start date: 12/19/16 13:23:00 CDT, Duration: 1 doses or times, Stop date: Limited # of times Notes: Infuse over 15 minutesDo not exceed 4gm/day of acetaminophen MEDICATION WASTE ProductSize: 1000 mgProduct Wasted: ___ mg Start Date: 12/19/16 Stop Date: 12/19/16 Status: DiscontinuedANES flumazenil 0.2 mg, 2 mL, Route: IVP, Drug form: INJ, PRN, Dosing Weight 73.636, kg, PRN Benzodiazepine Reversal, Initial dose, Start date: 12/19/16 13:23:00 CDT, Duration: 30 day, Stop date: 01/18/17 12:22:00 HUMAN RESOURCES HR REPRESENTATIVE Notes: (Same as: Romazicon) Start Date: 12/19/16 Stop Date: 12/19/16 Status: DiscontinuedANES HYDROmorphone 0.5 mg, 0.5 mL, Route: IVP, Drug form: INJ, Q5Min, Dosing Weight 73.636, kg, PRN Pain Score 7-10, Start date: 12/19/16 13:23:00 CDT, Duration: 4 doses or times, Stop date: Limited # of times Start Date: 12/19/16 Stop Date: 12/19/16 Status: DiscontinuedANES labetalol 10 mg, 2 mL, Route: IVP, Drug form: INJ, Q5Min, Dosing Weight 73.636, kg, PRN Elevated BP, Start date: 12/19/16 13:23:00 CDT, Duration: 5 doses or times, Stop date: Limited # of times Start Date: 12/19/16 Stop Date: 12/19/16 Status: DiscontinuedANES morphine Sulfate 2 mg, 1 mL, Route: IVP, Drug form: INJ, Q5Min, Dosing Weight 73.636, kg, PRN Pain Score 4-6, Start date: 12/19/16 13:23:00 CDT, Duration: 5 doses or times, Stop date: Limited # of times Notes: (Same as:MORPhine Sulfate) Start Date: 12/19/16 Stop Date: 12/19/16 Status: DiscontinuedANES naloxone 0.4 mg, 1 mL, Route: IVP, Drug form: INJ, Q2MIN, Dosing Weight 73.636, kg, PRN Narcotic Reversal, Start date: 12/19/16 13:23:00 CDT, Duration: 8 doses or times , Stop date: Limited # of times Notes: Same as Narcan Start Date: 12/19/16 Stop Date: 12/19/16 Status: DiscontinuedANES ondansetron 4 mg, 2 mL, Route: IVP, Drug form: INJ, ONCE, Dosing Weight 73.636, kg, PRN Nausea & Vomiting, Start date: 12/19/16 13:23:00 CDT Notes: (Same as: Jackelin) MEDICATION WASTE Product Size: 4 mgProduct Wasted: ___ mg Start Date: 12/19/16 Stop Date: 12/19/16 Status: DiscontinuedANES oxyCODONE 5 mg, 5 mL, Route: PO, Drug form: LIQ, Q4H, Dosing Weight 73.636, kg, PRN Pain Score 4-6, Start date: 12/19/16 13:23:00 CDT, Duration: 30 day, Stop date: 01/18 13:22:00 HUMAN RESOURCES HR REPRESENTATIVE Notes: (Same as: 'Roxicodone) Start Date: 12/19/16 Stop Date: 12/19/16 Status: DiscontinuedANES oxyCODONE 10 mg, 10 mL, Route: PO, Drug form: LIQ, Q4H, Dosing Weight 73.636, kg, PRN Pain Score 7-10, Start date: 12/19/16 13:23:00 CDT, Duration: 30 day, Stop date : 01/18/17 13:22:00 HUMAN RESOURCES HR REPRESENTATIVE Notes: (Same as: 'Roxicodone) Start Date: 12/19/16 Stop Date: 12/19/16 Status: Discontinuedaspirin 81 mg, PO, Daily, 0 Refill(s) Start Date: 12/09/16 Status: OrderedceFAZolin (ANES) Route: IV, Drug form: INJ, ONCE, Stop date: 12/19/16 12:50:00 CDT Start Date: 12/19/16 Stop Date: 12/19/16 Status: CompletedceFAZolin (SCIP) 2 gm + sterile water 20 mL Route: IVP, Drug form: PDR/INJ, Q8H, Dosing Weight 73.636, kg, Start date: 12/19 20:00:00 CDT, Duration: 1 doses or times, Stop date: 12/19/16 20:00:00 CDT, ABX Indication: Surgical Prophylaxis Notes: (Same As: Chris Elizabeth) MEDICATION WASTE Product Size: 1000 mgProduct Wasted: ___ mg Start Date: 12/19/16 Stop Date: 12/19/16 Status: CompletedCoreg 6.25 mg, PO, BID Start Date: 12/09/16 Status: OrderedCoreg 6.25 mg, 1 tab, Route: PO, Drug form: TAB, BID, Dosing Weight 73.636, kg, Start date: 12/19/16 17:00:00 CDT, Duration: 30 day, Stop date: 01/18/17 9:00:00 HUMAN RESOURCES HR REPRESENTATIVE Notes: Give with food. (Same As: Coreg) Start Date: 12/19/16 Stop Date: 12/20/16 Status: Discontinueddexamethasone (ANES) Route: IV, Drug form: INJ, ONCE, Stop date: 12/19/16 12:50:00 CDT Start Date: 12/19/16 Stop Date: 12/19/16 Status: CompletedfentaNYL (ANES) Route: IV, Drug form: INJ, ONCE, Stop date: 12/19/16 12:50:00 CDT Start Date: 12/19/16 Stop Date: 12/19/16 Status: Completedglycopyrrolate (ANES) Route: IV, Drug form: INJ, ONCE, Stop date: 12/19/16 12:50:00 CDT Start Date: 12/19/16 Stop Date: 12/19/16 Status: Completedinfluenza virus vaccine, inactivated 0.5 mL, Route: IM, Drug Form: SUSP, ONCALL, Start date: 12/09/16 14:36:27 CDT, Stop date: 01/08/17 14:31:27 HUMAN RESOURCES HR REPRESENTATIVE Notes: (Same as: Fluzone Quadrivalent, Fluarix Quadrivalent)For 3 years of age and older (0.5 mL IM)Shake well before use Start Date: 12/09/16 Stop Date: 12/19/16 Status: CanceledLactated Ringers 1,000 mL 1,000 mL, Rate: 125 ml/hr, Infuse over: 8 hr, Route: IV, Dosing Weight 73.636 kg , Total Volume: 1,000, Start date: 12/19/16 13:23:00 CDT, Duration: 30 day, Stop date: 01/18/17 13:22:00 HUMAN RESOURCES HR REPRESENTATIVE Start Date: 12/19/16 Stop Date: 12/19/16 Status: Discontinuedlidocaine (ANES) Route: IV, Drug form: INJ, ONCE, Stop date: 12/19/16 12:50:00 CDT Start Date: 12/19/16 Stop Date: 12/19/16 Status: Completedlisinopril 5 mg, PO, Daily Start Date: 12/09/16 Status: Orderedlisinopril 5 mg, 1 tab, Route: PO, Drug form: TAB, Daily, Dosing Weight 73.636, kg, Start date: 12/20/16 9:00:00 CDT, Duration: 30 day, Stop date: 01/18/17 9:00:00 HUMAN RESOURCES HR REPRESENTATIVE Notes: (Same as: ivemilie Zestril) Start Date: 12/20/16 Stop Date: 12/20/16 Status: DiscontinuedLR 1000 mL INJ (ANES) Route: IV, Total Volume: 1,000, Start date: 12/19/16 12:02:00 CDT, Stop date: 13:02:00 CDT Start Date: 12/19/16 Stop Date: 12/19/16 Status: CompletedMAGNESIUM MAGNESIUM, Refill(s) 0 Start Date: 12/09/16 Status: Orderedondansetron 4 mg, 2 mL, Route: IVP, Drug form: INJ, Q6H, Dosing Weight 73.636, kg, PRN Nausea & Vomiting, Start date: 12/19/16 12:40:00 CDT, Duration: 30 day, Stop date: 01/18/17 12:39:00 HUMAN RESOURCES HR REPRESENTATIVE Notes: (Same as: Jackelin) MEDICATION WASTE Product Size: 4 mgProduct Wasted: ___ mg Start Date: 12/19/16 Stop Date: 12/20/16 Status: Discontinuedondansetron (ANES) Route: IV, Drug form: INJ, ONCE, Stop date: 12/19/16 12:50:00 CDT Start Date: 12/19/16 Stop Date: 12/19/16 Status: Completedphenylephrine (ANES) Route: IV, Drug form: INJ, ONCE, Stop date: 12/19/16 12:50:00 CDT Start Date: 12/19/16 Stop Date: 12/19/16 Status: Completedpropofol (ANES) Route: IV, Drug form: INJ, ONCE, Stop date: 12/19/16 12:50:00 CDT Start Date: 12/19/16 Stop Date: 12/19/16 Status: CompletedSaline Flush 0.9% 10 ml, Route: IVP, Drug Form: INJ, Dosing Weight 73.636, kg, PRN, PRN Line Flush , Start date: 12/19/16 12:40:00 CDT, Duration: 30 day, Stop date: 01/18/17 11:39 :00 HUMAN RESOURCES HR REPRESENTATIVE Notes: (Same as: BD Posiflush) Start Date: 12/19/16 Stop Date: 12/20/16 Status: DiscontinuedSaline Flush 0.9% 10 ml, Route: IVP, Drug Form: INJ, Dosing Weight 73.636, kg, Q12H, Start date: 12/19/16 21:00:00 CDT, Duration: 30 day, Stop date: 01/18/17 9:00:00 HUMAN RESOURCES HR REPRESENTATIVE Notes: (Same as: BD Posiflush) Start Date: 12/19/16 Stop Date: 12/20/16 Status: DiscontinuedZetia 10 mg, PO, Daily Start Date: 12/09/16 Status: OrderedZetia 10 mg, 1 tab, Route: PO, Drug form: TAB, Daily, Dosing Weight 73.636, kg, Start date: 12/20/16 9:00:00 CDT, Duration: 30 day, Stop date: 01/18/17 9:00:00 HUMAN RESOURCES HR REPRESENTATIVE Notes: (Same as: Zetia) Start Date: 12/20/16 Stop Date: 12/20/16 Status: Discontinued Results ELECTROLYTES Most recent to oldest [Reference Range]: 1 Sodium Lvl [135-145 mEq/L] 145 mEq/L (12/09/16 2:21 PM) Potassium Lvl [3.5-5.1 mEq/L] 4.0 mEq/L (12/09/16 2:21 PM) Chloride Lvl [95-109 mEq/L] 105 mEq/L (12/09/16 2:21 PM) CO2 [24-32 mEq/L] 32 mEq/L (12/09/16 2:21 PM) AGAP [10.0-20.0 mEq/L] 12.0 mEq/L (12/09/16 2:21 PM) CHEM PANEL Most recent to oldest [Reference Range]: 1 Creatinine Lvl [0.50-1.40 mg/dL] 0.90 mg/dL (12/09/16 2:21 PM) eGFR 80 mL/min/1.73m2 1 *NA* (12/09/16 2:21 PM) BUN [7-22 mg/dL] 20 mg/dL (12/09/16 2:21 PM) Glucose Lvl [70-99 mg/dL] 104 mg/dL *HI* (12/09/16 2:21 PM) Calcium Lvl [8.5-10.5 mg/dL] 8.1 mg/dL *LOW* (12/09/16 2:21 PM) 1Result Comment: The eGFR is calculated using the CKD-EPI formula. In most young , healthy individualsthe eGFR will be >90 mL/min/1.73m2. The eGFR declines with age. An eGFR of 60-89 may be normal in some populations, particularly the elderly, for whom the CKD-EPI formula has not been extensively validated. Use of the eGFR is not recommended in the following populations: Individuals with unstable creatinine concentrations, including patients and those with serious co-morbid conditions. Patients with extremes in muscle mass or diet. The data above are obtained from the National Kidney Disease Education Program ( NKDEP) which additionally recommends that when the eGFR is used in patients with extremes of body mass index for purposesof drug dosing, the eGFR should be multiplied by the estimated BMI.HEMATOLOGY Most recent to oldest [Reference Range]: 1 WBC [3.7-10.4 K/CMM] 6.6 K/CMM (12/09/16 2:21 PM) RBC [4.70-6.10 M/CMM] 4.17 M/CMM *LOW* (12/09/16 2:21 PM) Hgb [14.0-18.0 g/dL] 13.3 g/dL *LOW* (12/09/16 2:21 PM) Hct [42.0-54.0 %] 38.8 % *LOW* (12/09/16 2:21 PM) MCV [80.0-94.0 fL] 93.0 fL (12/09/16 2:21 PM) MCH [27.0-31.0 pg] 31.9 pg *HI* (12/09/16 2:21 PM) MCHC [32.0-36.0 g/dL] 34.3 g/dL (12/09/16 2:21 PM) RDW [11.5-14.5 %] 13.5 % (12/09/16 2:21 PM) Platelet [133-450 K/CMM] 242 K/CMM (12/09/16 2:21 PM) MPV [7.4-10.4 fL] 6.7 fL *LOW* (12/09/16 2:21 PM) Segs [45.0-75.0 %] 61.1 % (12/09/16 2:21 PM) Lymphocytes [20.0-40.0 %] 25.9 % (12/09/16 2:21 PM) Monocytes [2.0-12.0 %] 8.3 % (12/09/16 2:21 PM) Eosinophils [0.0-4.0 %] 4.2 % *HI* (12/09/16 2:21 PM) Basophils [0.0-1.0 %] 0.5 % (12/09/16 2:21 PM) Segs-Bands # [1.5-8.1 K/CMM] 4.0 K/CMM (12/09/16 2:21 PM) Lymphocytes # [1.0-5.5 K/CMM] 1.7 K/CMM (12/09/16 2:21 PM) Monocytes # [0.0-0.8 K/CMM] 0.5 K/CMM (12/09/16 2:21 PM) Eosinophils # [0.0-0.5 K/CMM] 0.3 K/CMM (12/09/16 2:21 PM) Basophils # [0.0-0.2 K/CMM] 0.0 K/CMM (12/09/16 2:21 PM) Immunizations No data available for this section Procedures Procedure Date Related Diagnosis Body Site Angioplasty1 Cholecystectomy Procedure2 Procedure3 Rotator cuff repair4 Stent placement 1CORONARY STENTSS [id number] ARM TENDONS [id number] FINGER [id number] Social History Social History Type Response Substance Abuse Use: None. Alcohol Current, Type Wine. Frequency: Daily. Smoking Status Former smoker; Exposure to Tobacco Smoke None; Cigarette Smoking Last 365 Days No; Reg Smoking Cessation Counseling No Assessment and Plan No data available for this section
--- OUTSIDE RECORDS SUMMARY | 2017-08-14 18:02 | XMS REPORT | Summary of Care ---
:1935 Author Organization [facility] Encounter HQ Evangelina_morgan(JADE) [id number] Date(s): 05/01/16 - 05/01/16 [facility] [address] [place] [address], [address] [phone] Discharge Disposition: Home or Self Care Attending [...]
--- OUTSIDE RECORDS SUMMARY | 2017-08-14 18:02 | XMS REPORT ---
:1935 Author Organization [facility] Address [address] [place] [address] Care Team Providers Name Role Phone Unavailable Unavailable Unavailable Problems This patient has no known problems. Allergies, Adverse Reactions, Alerts This patient has no known allergies or adverse reactions. Medications This patient has no known medications. Results Test Description Test Time Test Comments Text Results Atomic Results Result Comments LIPID PANEL 2017-01-29 09:49:00 Test Item Value Reference Range Comments TRIGLYCERIDES (BEAKER) (test ctou=404) 65 mg/dL CHOLESTEROL ([facility]) (test sixn=778) 175 mg/dL HDL CHOLESTEROL (MOOIAKER) (test bxar=710) 46 mg/dL LDL CHOLESTEROL CALCULATED ([facility]) (test qxkv=014) 116 mg/dL Triglyceride Reference Range: Low Risk <150 Borderline 150- 199 High Risk 200-499 Very High Risk >=500Cholesterol Reference Range: Low Risk <200 Borderline 200-239 High Risk > 240HDL Cholesterol Reference Range: Low Risk >=60 High Risk <40LDL Cholesterol Reference Range: Optimal <100 Near Optimal 100-129 Borderline 130-159 High 160-189 Very High >=190
--- OUTSIDE RECORDS SUMMARY | 2017-08-14 18:02 | XMS REPORT | Summary of Care ---
:1935 Author Organization [facility] Encounter HQ Evangelina_morgan(FIN) [id number] Date(s): 04/16/16 - 04/16/16 [facility] [address] [place] [address], [address] [place], [place] [id number] [place] [address] [phone] Discharge Disposition: Home or Self Care Attending Physician: Leighton Ramirez MD Vital Signs No data available for [...]
[2017-08-14] MEDS ORDERED: MORPHINE 4 MG/ML SYR ONE (18:56)
[2017-08-14] MEDS ORDERED: ONDANSETRON 4 MG/2 ML VIAL ONE (18:56)
[2017-08-14 19:02] LABS: Absolute Lymphocytes (CBC) 1.7 K/uL (0.7-4.9); Absolute Monocytes 0.8 K/uL (0.1-1.3); Absolute Neutrophil 5.3 K/uL (1.8-8.0); Basophils % 0.6 % (0-1.3); Eosinophils % 3.3 % (0-4.4); Hematocrit 38.6 % (39.6-49.0); Lymphocytes % 20.8 % (15.3-44.8); MCH 30.5 pg (27.0-35.0); MCV 93.1 fL (80-100); MPV 7.1 fL (7.6-11.3); Monocytes % 9.6 % (3.3-12.3); RBC Red Blood Cell Count 4.15 M/uL (4.33-5.43)
[2017-08-14 19:21] LABS: Albumin 3.7 g/dL (3.4-5.0); Bilirubin Direct 0.2 mg/dL (0-0.2); Bilirubin Total 0.5 mg/dL (0.2-1.0); Potassium 4.3 mmol/L (3.5-5.1); Protein, Total 6.3 g/dL (6.4-8.2)
--- NOTE | 2017-08-14 21:11 | RAD REPORT ---
EXAM DESCRIPTION: CT - Abdomen Pelvis W Contrast - 08/14/2017 8:57 pm CLINICAL HISTORY: Abdominal pain. COMPARISON: None. TECHNIQUE: Computed axial tomography of the abdomen and pelvis was obtained. 100 cc Isovue-300 is ad ministered intravenously. Oral contrast was given. All CT scans are performed using dose optimization technique as appropriate and may include automated exposure control or mA/KV adjustment according to patient size. FINDINGS: The gallbladder has been removed. Pneumobilia is present. Spleen, pancreas, and adrenals appear unremarkable. Bilateral renal cysts are present measuring up to 26 millimeters. A tiny nonobstructing left renal ca lculus is present. There is no evidence of diverticulitis . A 13 millimeter metallic structure is present within the ri ght lower quadrant. A small to moderate left inguinal hernia contains fat. The prostate gland is mildly to moderately enlarged IMPRESSION: A left inguinal hernia containing fat
--- NOTE | 2017-08-14 21:29 | EDPHYS ---
Physician Documentation [facility] Name: Sonny Morse Age: 82 yrs Sex: Male : 1935 Arrival Date: 08/14/2017 Time: 18:03 Bed 16 Private MD: Out, [facility] ED Physician Ady Coleman HPI: 08/14 18:45 This 82 yrs old Male presents to ER via Ambulatory with complaints of Abd cp Pain > 50 y/o. 18:45 The patient presents with abdominal pain left inguinal area. Onset: The cp symptoms/episode began/occurred suddenly, today. The symptoms do not radiate. Associated signs and symptoms: Pertinent negatives: nausea, vomiting, and diarrhea, chest pain, constipation, diarrhea, dysuria, fever, testicular pain. The symptoms are described as waxing/waning. Severity of pain: in the emergency department the pain has improved mildly. Historical: - Allergies: 22:01 No Known Allergies; bp - Home Meds: 22:01 aspirin 81 mg Oral chew 1 tab once daily [Active]; alfuzosin 10 mg oral Tb24 1 tab once bp daily [Active]; carvedilol 6.25 mg oral tab 1 tab 2 times per day [Active]; Zetia 10 mg Oral tab 1 tab once daily [Active]; lisinopril 10 mg Oral tab 1 tab once daily [Active]; rosuvastatin 5 mg oral tab 1 tab once daily [Active]; magnesium oxide 400 mg Oral tab [Active]; - PMHx: 22:01 Pancreatitis; Hypertension; bp - PSHx: 22:01 Cholecystectomy; Heart stents; bp - Immunization history:: Adult Immunizations up to date. - Social history:: Smoking status: Patient/guardian denies using tobacco. - Ebola Screening: : No symptoms or risks identified at this time. ROS: 18:52 Constitutional: Negative for body aches, chills, fever, poor PO intake. cp 18:52 Eyes: Negative for injury, pain, redness, and discharge. cp 18:52 ENT: Negative for drainage from ear(s), ear pain, sore throat, difficulty swallowing, difficulty handling secretions. 18:52 Cardiovascular: Negative for chest pain, palpitations. 18:52 Respiratory: Negative for cough, shortness of breath, wheezing. 18:52 Abdomen/GI: Positive for left inguinal pain, Negative for nausea, vomiting, and diarrhea, constipation, anorexia, black/tarry stool, rectal bleeding. 18:52 Back: Negative for pain at rest, pain with movement, radiated pain. 18:52 : Negative for urinary symptoms, testicular pain 18:52 Skin: Negative for cellulitis, rash. 18:52 Neuro: Negative for altered mental status, dizziness, headache, syncope, near syncope, weakness. 18:52 All other systems are negative. Exam: 18:55 Constitutional: The patient appears in no acute distress, alert, awake, cp non-diaphoretic, non-toxic, well developed, well nourished, uncomfortable. 18:55 Head/Face: Normocephalic, atraumatic. cp 18:55 Eyes: Periorbital structures: appear normal, Conjunctiva: normal, no exudate, no injection, Sclera: no appreciated abnormality, Lids and lashes: appear normal, bilaterally. 18:55 ENT: External ear(s): are unremarkable, Nose: is normal, Mouth: is normal, Posterior pharynx: is normal, airway is patent. 18:55 Chest/axilla: Inspection: normal, Palpation: is normal, no crepitus, no tenderness. 18:55 Cardiovascular: Rate: normal, Rhythm: regular. 18:55 Respiratory: the patient does not display signs of respiratory distress, Respirations: normal, no use of accessory muscles, no retractions, no splinting, no tachypnea, labored breathing, is not present, Breath sounds: are clear throughout, no decreased breath sounds, no stridor, no wheezing. 18:55 Abdomen/GI: Bowel sounds: active, all quadrants, Palpation: abdomen is soft and non-tender, in all quadrants, Hernia: noted in the left inguinal area, tenderness, that is moderate, bowel sounds are appreciated on auscultation. 18:55 Back: pain, is absent, ROM is normal. 18:55 Skin: cellulitis, is not appreciated, no rash present. Vital Signs: 18:05 BP 150 / 60; Pulse 58; Resp 16; Pulse Ox 96% on R/A; Weight 70.31 kg; Height 5 ft. 9 sg in. (175.26 cm); Pain 7/10; 19:45 BP 129 / 58; Pulse 54; Resp 16; Pulse Ox 96% ; bp 20:00 BP 138 / 67; Pulse 53; Resp 16; Pulse Ox 96% ; bp 21:04 BP 143 / 71; Pulse 60; Resp 16; Pulse Ox 99% ; bp 18:05 Body Mass Index 22.89 (70.31 kg, 175.26 cm) sg Procedures: 19:15 Reduction: of the left inguinal area, using manipulation, Patient tolerated well. cp MDM: 18:18 Patient medically screened. cp 21:27 Data reviewed: vital signs, nurses notes, lab test result(s), radiologic studies, CT cp scan. 21:27 Counseling: I had a detailed discussion with the patient and/or guardian regarding: the cp historical points, exam findings, and any diagnostic results supporting the discharge/admit diagnosis, lab results, radiology results, the need for outpatient follow up, for definitive care, a general surgeon, to return to the emergency department if symptoms worsen or persist or if there are any questions or concerns that arise at home. Response to treatment: the patient's symptoms have markedly improved after treatment, VSS. Hernia reduced and pain improved. Will discharge to home for continued monitoring. Patient reports he will contact PCP in [place] for referral to general surgeon. Patient instructed to seek immediate attention return or worsening pain. 08/14 18:39 Order name: Amylase, Serum; Complete Time: 21:16 cp 08/14 18:39 Order name: Basic Metabolic Panel; Complete Time: 21:16 cp 08/14 21:16 Interpretation: Normal except: GFR 81. cp 08/14 18:39 Order name: CBC with Diff; Complete Time: 21:16 08/14 21:16 Interpretation: Normal except: RBC 4.15; HGB 12.7; HCT 38.6; MPV 7.1. cp 08/14 18:39 Order name: Creatinine for Radiology; Complete Time: 21:16 cp 08/14 18:39 Order name: Hepatic Function; Complete Time: 21:16 cp 08/14 18:39 Order name: Lipase; Complete Time: 21:16 cp 08/14 18:39 Order name: IV Saline Lock; Complete Time: 19:02 cp 08/14 18:39 Order name: Labs collected and sent; Complete Time: 19:02 cp 08/14 18:39 Order name: CT Abd/Pelvis - W/Contrast; Complete Time: 21:16 cp 08/14 21:17 Interpretation: Report reviewed. cp Administered Medications: 19:01 Drug: Zofran 4 mg Route: IVP; Site: left antecubital; kr2 22:01 Follow up: Response: No adverse reaction bp 19:02 Drug: morphine 4 mg Route: IVP; Site: left antecubital; kr2 22:01 Follow up: Response: No adverse reaction bp Disposition: 08/15 17:29 Co-signature as Attending Physician, Ady Coleman MD. rn Disposition: 08/14/17 21:29 Discharged to Home. Impression: Unilateral inguinal hernia, without obstruction or gangrene, recurrent - Left. - Condition is Stable. - Discharge Instructions: Inguinal Hernia, Adult. - Prescriptions for Tramadol 50 mg Oral Tablet - take 1 tablet by ORAL route every 8 hours as needed; 15 tablet. - Medication Reconciliation Form, Thank You Letter, Antibiotic Education, Prescription Opioid Use form. - Follow up: Stevie Vo MD; When: 2 - 3 days; Reason: left inguinal hernia repair. - Problem is new. - Symptoms have improved. Signatures: Dispatcher [employer] EDMS Ady Coleman MD MD rn Billy Carreon PA PA cp Rajiv Dominguez, INDIRA RN bp Angie Smith RN RN kr2 Corrections: (The following items were deleted from the chart) 08/14 22:02 21:29 08/14/2017 21:29 Discharged to Home. Impression: Unilateral inguinal hernia, bp without obstruction or gangrene, recurrent - Left. Condition is Stable. Forms are Medication Reconciliation Form, Thank You Letter, Antibiotic Education, Prescription Opioid Use. Follow up: Stevie Vo; When: 2 - 3 days; Reason: left inguinal hernia repair. Problem is new. Symptoms have improved. cp
--- NOTE | 2017-08-14 21:29 | ER ---
Nurse's Notes [facility] Name: Sonny Morse Age: 82 yrs Sex: Male : 1935 Arrival Date: 08/14/2017 Time: 18:03 Bed 16 Private MD: Out, [facility] Diagnosis: Unilateral inguinal hernia, without obstruction or gangrene, recurrent-Left Presentation: 08/14 18:04 Presenting complaint: Patient states: Left groin pain, and noticed a bulging spot there sg on the left side, extremely painful, reports no issue with BM or urinary problems at this time, more uncomfortable sitting than standing, denies NVD fever. Transition of care: patient was not received from another setting of care. Onset of symptoms was August 14, 2017. Risk Assessment: Do you want to hurt yourself or someone else? Patient reports no desire to harm self or others. Initial Sepsis Screen: Does the patient meet any 2 criteria? No. Patient's initial sepsis screen is negative. Does the patient have a suspected source of infection? No. Patient's initial sepsis screen is negative. Care prior to arrival: None. 18:04 Method Of Arrival: Ambulatory sg 18:04 Acuity: LOBITO 3 sg Triage Assessment: 19:03 General: Appears in no apparent distress. uncomfortable, slender, well groomed, well kr2 developed, well nourished, Behavior is calm, cooperative, appropriate for age. Pain: Complains of pain in suprapubic area, left inguinal area and left iliac crest Pain currently is 7 out of 10 on a pain scale. Quality of pain is described as sharp, stabbing, tender. GI: Abdomen is flat, non-distended, Patient currently denies nausea, vomiting. Historical: - Allergies: 22:01 No Known Allergies; bp - Home Meds: 22:01 aspirin 81 mg Oral chew 1 tab once daily [Active]; alfuzosin 10 mg oral Tb24 1 tab once bp daily [Active]; carvedilol 6.25 mg oral tab 1 tab 2 times per day [Active]; Zetia 10 mg Oral tab 1 tab once daily [Active]; lisinopril 10 mg Oral tab 1 tab once daily [Active]; rosuvastatin 5 mg oral tab 1 tab once daily [Active]; magnesium oxide 400 mg Oral tab [Active]; - PMHx: 22:01 Pancreatitis; Hypertension; bp - PSHx: 22:01 Cholecystectomy; Heart stents; bp - Immunization history:: Adult Immunizations up to date. - Social history:: Smoking status: Patient/guardian denies using tobacco. - Ebola Screening: : No symptoms or risks identified at this time. Screenin:03 Abuse screen: Denies threats or abuse. Denies injuries from another. Nutritional kr2 screening: No deficits noted. Tuberculosis screening: No symptoms or risk factors identified. Fall Risk None identified. Assessment: 19:14 General: Appears in no apparent distress. comfortable, well groomed, well developed, kr2 well nourished, Behavior is calm, cooperative, appropriate for age. Pain: Complains of pain in left inguinal area Pain currently is 6 out of 10 on a pain scale. at worst was 10 out of 10 on a pain scale. Quality of pain is described as sharp, shooting, stabbing, tender, Is continuous, Alleviated by medications, rest, Aggravated by increased activity. Neuro: Level of Consciousness is awake, alert, obeys commands, Oriented to person, place, time, situation, Appropriate for age. Cardiovascular: Capillary refill < 3 seconds in bilateral fingers Patient's skin is warm and dry. Respiratory: Airway is patent Respiratory effort is even, unlabored, Respiratory pattern is regular, symmetrical. GI: Bowel sounds present X 4 quads. Abd is soft X 4 quads Abdomen is tender to palpation in left lower quadrant. : Denies inability to void. Derm: Skin is intact, is healthy with good turgor, Skin is pink, warm \T\ dry. Musculoskeletal: Circulation, motion, and sensation intact. Range of motion: intact in all extremities. 19:15 Reassessment: RECD REPORT FROM ANGIE JACOBSON. 82YO WM P/W ABD PAIN. CT NOTIFIED, PO CONTRAST bp COMPLETED. 21:03 Reassessment: PT RETURNED FROM CT. RESULTS PENDING. bp 21:35 Reassessment: PT D/C HOME AMBULATORY WITH FAMILY, DX WITH RECURRENT LEFT INGUINAL bp HERNIA. Vital Signs: 18:05 BP 150 / 60; Pulse 58; Resp 16; Pulse Ox 96% on R/A; Weight 70.31 kg; Height 5 ft. 9 sg in. (175.26 cm); Pain 7/10; 19:45 BP 129 / 58; Pulse 54; Resp 16; Pulse Ox 96% ; bp 20:00 BP 138 / 67; Pulse 53; Resp 16; Pulse Ox 96% ; bp 21:04 BP 143 / 71; Pulse 60; Resp 16; Pulse Ox 99% ; bp 18:05 Body Mass Index 22.89 (70.31 kg, 175.26 cm) ED Course: 18:03 Patient arrived in ED. sb2 18:03 Out, of [facility] is Private Physician. sb2 18:04 Arm band placed on. sg 18:05 Triage completed. sg 18:18 Billy Carreon PA is PHCP. cp 18:18 Ady Coleman MD is Attending Physician. cp 18:19 Angie Smith, RN is Primary Nurse. kr2 18:50 Inserted saline lock: 20 gauge in left antecubital area, using aseptic technique. Blood kr2 collected. 19:05 Patient has correct armband on for positive identification. Call light in reach. Side kr2 rails up X 1. Pulse ox on. NIBP on. Door closed. Warm blanket given. Head of bed elevated. 19:06 Primary Nurse role handed off by Angie Smith, RN bp 19:06 Rajiv Dominguez, RN is Primary Nurse. bp 20:[address] via wheelchair. nj 20:53 CT completed. Patient tolerated procedure well. Patient moved back from CT. nj 20:57 CT Abd/Pelvis - W/Contrast In Process Unspecified. EDMS 21:28 Stevie Vo MD is Referral Physician. cp 21:36 No provider procedures requiring assistance completed. IV discontinued, intact, bp bleeding controlled, No redness/swelling at site. Pressure dressing applied. Administered Medications: 19:01 Drug: Zofran 4 mg Route: IVP; Site: left antecubital; kr2 22:01 Follow up: Response: No adverse reaction bp 19:02 Drug: morphine 4 mg Route: IVP; Site: left antecubital; kr2 22:01 Follow up: Response: No adverse reaction bp Outcome: 21:29 Discharge ordered by . cp 21:36 Discharged to home ambulatory, with family. bp 21:36 Condition: stable 21:36 Discharge instructions given to patient, Instructed on discharge instructions, follow up and referral plans. medication usage, Demonstrated understanding of instructions, follow-up care, medications, Prescriptions given X 1. 22:02 Patient left the ED. bp Signatures: Dispatcher [employer] EDMS Sav Cast RN RN sg Billy Carreon PA PA cp Jordan, Nathan nj Peltier, Brian, RN RN bp Angie Smith RN RN kr2 Jaquelin Roberts sb2
== END 2017-08-14 22:02 | disposition home or self-care (01) ==
LOC: ER 17:59
DX: K40.90 Unilateral inguinal hernia, without obstruction or gangrene, not specified as recurrent (principal); I10 Essential (primary) hypertension; Z95.818 Presence of other cardiac implants and grafts; Z79.82 Long term (current) use of aspirin
CPT/HCPCS: 36415; 74177; 80048; 80076; 82150; 83690; 85025; 96374; 96375; 99284; J2405; Q9967